=== PATIENT | female | born 1965 | race American Indian/Alaskan Native ===

== ENCOUNTER 2023-11-29 10:31 | Outpatient (CLI) | payer BC, OTHER ==
[~2023-11-29] VITALS: Ht 185.4 cm; Wt 91.6 kg
[2023-11-29] MEDS: albuterol 2.5 MG/3 ML nebule NEB PRN (11:26)
[2023-11-29 11:32] VITALS: PULSE 70; RESP 16; O2SAT 98
== END 2023-11-29 23:59 | disposition home or self-care (01) ==
LOC: RT 10:31
PROVIDERS: ATTEND Internal Medicine Pulmonary Disease
DX: J45.909 Unspecified asthma, uncomplicated (principal)
CPT/HCPCS: 94060; 94727; 94729; 94760